=== PATIENT | male | born 1970 | race African-American/Black ===

== ENCOUNTER 2017-07-14 07:39 | Emergency (ER) | payer MEDICARE, MEDICAID ==
[~2017-07-14] VITALS: Ht 160 cm; Wt 75.0 kg
[~2017-07-14 07:39] MED LIST: CIPR0.3S2 RIGHT EYE; HYDR-3533 PO
[2017-07-14 07:40] VITALS: BP 180/120; PULSE 86; RESP 16; TEMP 98.1; O2SAT 99
[2017-07-14] MEDS ORDERED: IBUPROFEN 600 MG TAB PO ONE (08:00)
--- NOTE | 2017-07-14 08:03 | PD ---
HPI Chief Complaint: Injury Time Seen by Provider: 07:55 Travel History International Travel<30 days: No Contact w/Intl Traveler<30days: No Traveled to known affect area: No History of Present Illness HPI Patient is a 47-year-old male who presents to the ER with complaints of pain to right big toe. Patient reports that he stubbed his toe 2 days ago after he accidently kicked a chair while closing a vent. Reports pain for the past 2 days, patient here to see if his toe is broken. Denies fall or trauma to head/ neck. Denied loc. No other complaints. PFSH Past Medical History Asthma: No Blood Disorders: No Cancer: No Cardiovascular Problems: No COPD: No Diminished Hearing: No Diverticulitis: Yes (2 YRS AGO) Endocrine: No Gastrointestinal Disorders: Yes (HX OF DIVERTICULITIS 2 YEARS AGO) GERD: Yes Genitourinary: No Immune Disorder: No Musculoskeletal: No Neurologic: No Psychiatric: No Reproductive: No Respiratory: No Past Surgical History Abdominal Surgery: No Cardiac Surgery: No Ear Surgery: No Endocrine Surgery: No Eye Surgery: No Genitourinary Surgery: No Gynecologic Surgery: No Oral Surgery: No Pacemaker: No Thoracic Surgery: No Social History Alcohol Use: Yes (BEER 2 TIMES A WEEK) Tobacco Use: Yes (1 PPD) Substance Use: No Allergies-Medications (Allergen,Severity, Reaction): Coded Allergies: No Known Allergies (Verified Adverse Reaction, Unknown, 07/14/17) Reported Meds & Prescriptions Reported Meds & Active Scripts Active No Active Prescriptions or Reported Medications Review of Systems General / Constitutional: No: Fever Eyes: No: Visual changes HENT: No: Headaches Cardiovascular: No: Chest Pain or Discomfort Respiratory: No: Shortness of Breath Gastrointestinal: No: Abdominal Pain Genitourinary: No: Dysuria Musculoskeletal: Positive: Pain (pain to right big toe digit #1) Skin: No Rash Neurologic: No: Weakness Psychiatric: No: Depression Endocrine: No: Polydipsia Hematologic/Lymphatic: No: Easy Bruising Physical Exam Narrative GENERAL: Well-nourished, well-developed patient. SKIN: Focused skin assessment warm/dry. HEAD: Normocephalic. EYES: No scleral icterus. No injection or drainage. NECK: Supple, trachea midline. No JVD or lymphadenopathy. CARDIOVASCULAR: Regular rate and rhythm without murmurs, gallops, or rubs. RESPIRATORY: Breath sounds equal bilaterally. No accessory muscle use. GASTROINTESTINAL: Abdomen soft, non-tender, nondistended. MUSCULOSKELETAL: No cyanosis, or edema. LLE: normal exam RLE: Patient with pain with range of motion to the right digit #1, there is no obvious fracture/open fracture, pulses intact, neurovascular intact with no compromise BACK: Nontender without obvious deformity. No CVA tenderness. Data Data Last Documented VS Vital Signs Date Time Temp Pulse Resp B/P (MAP) Pulse Ox O2 Delivery O2 Flow Rate FiO2 07/14/17 07:50 Room Air 07/14/17 07:40 98.1 86 16 180/120 (140) 99 Orders Orders Foot, Complete ([id number]) (07/14/17 ) Ibuprofen (Motrin) (07/14/17 08:00) MDM Medical Decision Making Medical Screen Exam Complete: Yes Emergency Medical Condition: Yes Medical Record Reviewed: Yes Interpretation(s) Vital Signs Date Time Temp Pulse Resp B/P (MAP) Pulse Ox O2 Delivery O2 Flow Rate FiO2 07/14/17 07:50 Room Air 07/14/17 07:40 98.1 86 16 180/120 (140) 99 Differential Diagnosis toe fx vs sprain Narrative Course xray of right foot ordered. ibuprofen given for pain control Last Impressions Foot X-Ray 07/14/17 0000 Signed Impressions: CONCLUSION: Negative for fracture or dislocation. Followup in 7-10 days is suggested if symptoms persist. X-ray of the foot with no obvious fractures. Patient with most likely sprain of toe. Xray was reviewed with patient. Plan for ice and ibuprofen for pain. He will return to ER as needed Diagnosis Primary Impression: Sprain of toe, great, right Qualified Codes: S93.501A - Unspecified sprain of right great toe, initial encounter Patient Instructions: General Instructions Additional Instructions: Please provide patient with a copy of his xray at discharge Please follow up with your primary care doctor in 2-3 days Return to the ER if symptoms worsen or progress Return to the ER as needed Place ice to toe, take ibuprofen for pain Med/Other Pt SpecificInfo: Prescription(s) given Scripts Ibuprofen (Ibuprofen) 600 Mg Tab 600 MG PO Q6H Y for Pain/Inflammation, #40 TAB 0 Refills Prov: Sharee Birch DO 07/14/17 Disposition: 01 DISCHARGE HOME Condition: Stable Sharee Birch DO July 14, 2017 08:03
--- NOTE | 2017-07-14 08:31 | RADRPT ---
EXAM DATE: 07/14/2017 8:15 AM EDT AGE/SEX: 47 years / Male INDICATIONS: All over right foot pain after stomping foot on a chair. CLINICAL DATA: This is the patient's initial encounter. Patient reports that signs and symptoms have been present for 2 days and indicates a pain score of 10/10. MEDICAL/SURGICAL HISTORY: None. None. COMPARISON: No prior [place] exams available for comparison. FINDINGS: Bony structures are intact and in normal alignment. Osseous density is normal. Soft tissues are unre markable. No radiopaque foreign bodies seen. CONCLUSION: Negative for fracture or dislocation. Followup in 7-10 days is suggested if symptoms persist. Electronically signed by: Wilmar Parisi MD 07/14/2017 8:29 AM EDT
[2017-07-14] MEDS ORDERED: IBUP-232 PO (08:48)
[2017-07-14 09:47] VITALS: BP 170/110
== END 2017-07-14 09:49 | disposition home or self-care (01) ==
LOC: NEPC 07:39
DX: S93.501A Unspecified sprain of right great toe, initial encounter (principal); F17.200 Nicotine dependence, unspecified, uncomplicated; W22.03XA Walked into furniture, initial encounter; Y93.89 Activity, other specified
CPT/HCPCS: 73630; 99283